=== PATIENT | female | born 1995 | race Caucasian/White ===

== ENCOUNTER 2017-06-06 12:23 | Emergency (ER) | payer OTHER ==
[~2017-06-06] VITALS: Ht 170.2 cm; Wt 80.7 kg
[~2017-06-06 12:23] MED LIST: SERT25TA PO; [UNRECOGNIZED DRUG - REMARK] PO
[2017-06-06] MEDS ORDERED: SODIUM CHLORIDE 0.9% 1,000 ML IV ONE (13:32)
[2017-06-06] MEDS ORDERED: SODIUM CHLORIDE FLUSH 10ML SYR IVF ONE (14:00)
[2017-06-06 14:11] LABS: ASPARTATE AMINO TRANSFERASE 12 U/L (15-37); BLOOD UREA NITROGEN 9 mg/dL (7-18)
[2017-06-06 15:51] VITALS: BP 105/67
[2017-06-06] MEDS ORDERED: PREN1TAB25 PO (17:37)
== END 2017-06-06 16:30 | disposition home or self-care (01) ==
LOC: ED 16:04
DX: O23.43 Unspecified infection of urinary tract in pregnancy, third trimester (principal); O26.893 Other specified pregnancy related conditions, third trimester; R42 Dizziness and giddiness; E86.0 Dehydration; Z3A.31 31 weeks gestation of pregnancy
CPT/HCPCS: 36415; 80053; 81001; 85025; 87086; 93005; 99285

== ENCOUNTER 2017-06-06 16:26 | Outpatient (CLI) | payer OTHER ==
[~2017-06-06] VITALS: Ht 170.2 cm; Wt 77.3 kg
[2017-06-06 17:20] VITALS: BP 97/56
[2017-06-06] MEDS ORDERED: PREN1TAB25 PO (17:37)
== END 2017-06-06 18:06 | disposition home or self-care (01) ==
LOC: LDOP 16:26
PROVIDERS: ATTEND Obstetrics & Gynecology
DX: O26.893 Other specified pregnancy related conditions, third trimester (principal); O62.9 Abnormality of forces of labor, unspecified; O47.03 False labor before 37 completed weeks of gestation, third trimester; R42 Dizziness and giddiness; R51 Headache; R10.2 Pelvic and perineal pain; R10.9 Unspecified abdominal pain; Z3A.30 30 weeks gestation of pregnancy
CPT/HCPCS: 59025; 99201; G0463

== ENCOUNTER 2017-08-06 10:34 | Outpatient (CLI) | payer OTHER ==
[~2017-08-06 10:34] MED LIST changes: +PREN1TAB25 PO
[2017-08-06 11:41] VITALS: BP 106/65
[2017-08-06 12:08] LABS: AMNISURE NEGATIVE (NEGATIVE)
[2017-08-06 12:09] LABS: AMNI OBC PASS
== END 2017-08-06 19:31 | disposition home or self-care (01) ==
LOC: LDOP 10:34
PROVIDERS: ATTEND Obstetrics & Gynecology
DX: O42.92 Full-term premature rupture of membranes, unspecified as to length of time between rupture and onset of labor (principal); O62.9 Abnormality of forces of labor, unspecified; Z3A.39 39 weeks gestation of pregnancy
CPT/HCPCS: 59025; 84112; 89060; 99211; G0463; Q0114

== ENCOUNTER 2017-08-07 21:04 | Outpatient (CLI) | payer OTHER | END 2017-08-07 23:35 | disposition home or self-care (01) | LOC: LDOP 21:04 | PROVIDERS: ATTEND Obstetrics & Gynecology | DX: O36.8130 Decreased fetal movements, third trimester, not applicable or unspecified (principal); O62.9 Abnormality of forces of labor, unspecified; Z3A.39 39 weeks gestation of pregnancy | CPT/HCPCS: 59025; 99211; G0463 ==

== ENCOUNTER 2017-08-10 05:03 | Inpatient (IN) | payer OTHER ==
[~2017-08-10] VITALS: Ht 170.2 cm; Wt 83.0 kg
[2017-08-10] MEDS ORDERED: LACTATED RINGERS 1,000 ML IV SCH ×2 (05:04→12:03)
[2017-08-10] MEDS ORDERED: OXYTOCIN 30U/ 0.9% NaCL 500ML 500 ML IV PRN (05:04)
[2017-08-10] MEDS ORDERED: OXYTOCIN 30U/ 0.9% NaCL 500ML 500 ML IV ONE (05:04)
[2017-08-10] MEDS ORDERED: D5%-LACTATED RINGERS 1,000 ML IV SCH (05:04)
[2017-08-10] MEDS ORDERED: TERBUTALINE 1 MG/ML, 1ML IVPush PRN (05:30)
[2017-08-10] MEDS ORDERED: FENTANYL PF 100 MCG/2ML IV PRN (05:30)
[2017-08-10] MEDS ORDERED: NEWBORN KIT ONE (05:37)
[2017-08-10] MEDS ORDERED: OXYTOCIN 30U/ 0.9% NaCL 500ML 500 ML ONE ×2 (05:37→14:39)
[2017-08-10 05:56] LABS: HEMATOCRIT 38.4 % (34.6-47.8); HEMOGLOBIN 13.1 g/dL (11.7-16.4); WHITE BLOOD COUNT 10.2 x10^3/uL (3.4-10)
[2017-08-10 06:02] VITALS: BP 111/74
[2017-08-10] MEDS ORDERED: FENTANYL PF 100 MCG/2ML ONE ×3 (07:10→09:09)
[2017-08-10] MEDS: FENTANYL PF 100 MCG/2ML IVPush PRN ×2 (07:13→08:35)
[2017-08-10 07:41] VITALS: BP 111/58
[2017-08-10] MEDS ORDERED: BUPIVACAINE 0.25% ONE (09:09)
[2017-08-10] MEDS ORDERED: FENTANYL/BUPIV./NS/PF 250 ML EPIDCONT ONE (09:10)
[2017-08-10] MEDS ORDERED: FENTANYL/BUPIV./NS/PF 250 ML EPIDCONT SCH (12:03)
[2017-08-10] MEDS ORDERED: LACTATED RINGERS 1,000 ML IVBOLUS PRN (12:30)
[2017-08-10] MEDS ORDERED: MISOPROSTOL 200 MCG TABLET PR PRN (16:00)
[2017-08-10] MEDS ORDERED: HYDROcodone/APAP 5/325 TABLET PO PRN ×2 (16:00)
[2017-08-10] MEDS ORDERED: ACETAMINOPHEN 325 MG TABLET PO PRN ×2 (16:00)
[2017-08-10] MEDS: OXYTOCIN 30U/ 0.9% NaCL 500ML 500 ML IV SCH (16:07)
[2017-08-10 17:50] VITALS: BP 101/54
[2017-08-10 20:30] VITALS: BP 107/66
[2017-08-11 00:46] LABS: HEMATOCRIT 34.3 % (34.6-47.8); HEMOGLOBIN 11.6 g/dL (11.7-16.4); WHITE BLOOD COUNT 13.8 x10^3/uL (3.4-10)
[2017-08-11] MEDS: OXYTOCIN 30U/ 0.9% NaCL 500ML 500 ML IV SCH ×2 (01:40→11:40)
[2017-08-11 01:50] VITALS: BP 105/65
[2017-08-11 04:15] VITALS: BP 105/67
[2017-08-11 08:00] VITALS: BP 96/56
[2017-08-11] MEDS: IBUPROFEN 600 MG TABLET PO PRN (08:49)
[2017-08-11] MEDS: DOCUSATE 100 MG CAPSULE PO PRN (08:49)
[2017-08-11] MEDS: PRENATAL VIT/IRON/FA 1 EACH TABLET PO SCH (08:49)
[2017-08-11 12:00] VITALS: BP 110/71
[2017-08-11 21:06] VITALS: BP 108/70
[2017-08-12] MEDS: IBUPROFEN 600 MG TABLET PO PRN (04:05)
[2017-08-12 08:10] VITALS: BP 115/72
[2017-08-12] MEDS: PRENATAL VIT/IRON/FA 1 EACH TABLET PO SCH (08:16)
[2017-08-12] MEDS: DOCUSATE 100 MG CAPSULE PO PRN (08:17)
[2017-08-12] MEDS ORDERED: LIDOCAINE/PF 1.5%-EPI 1:200K, 30ML ONE (09:13)
[2017-08-12] MEDS ORDERED: EPHEDRINE 50 MG/ML, 1ML ONE (09:13)
[2017-08-12] MEDS ORDERED: ONDANSETRON 2MG/ML, 2ML ONE (09:13)
[2017-08-12] MEDS ORDERED: IBUP-1222 PO (13:04)
[2017-08-12] MEDS ORDERED: HYDR-3240 PO (13:05)
== END 2017-08-12 14:20 | disposition home or self-care (01) | DRG 775 ==
LOC: LDIP 05:03 → 2NW 17:46
PROVIDERS: ADMIT Obstetrics & Gynecology; ATTEND Obstetrics & Gynecology
PROC: 10E0XZZ Delivery of Products of Conception, External Approach (ICD-10-PCS; principal; 2017-08-10)
PROC: 0HQ9XZZ Repair Perineum Skin, External Approach (ICD-10-PCS; 2017-08-10)
PROC: 3E033VJ Introduction of Other Hormone into Peripheral Vein, Percutaneous Approach (ICD-10-PCS; 2017-08-10)
PROC: 3E0S3CZ (ICD-10-PCS; 2017-08-10)
PROC: 00HU33Z Insertion of Infusion Device into Spinal Canal, Percutaneous Approach (ICD-10-PCS; 2017-08-10)
DX: O69.81X0 Labor and delivery complicated by cord around neck, without compression, not applicable or unspecified (principal); O70.0 First degree perineal laceration during delivery; Z37.0 Single live birth; Z3A.40 40 weeks gestation of pregnancy; Z88.1 Allergy status to other antibiotic agents; Z91.040 Latex allergy status; Z91.010 Allergy to peanuts
CPT/HCPCS: 36415; 85025; 86850; 86900; J2405; J3010; J3490; J2590; J7120

== ENCOUNTER 2017-11-21 10:02 | Emergency (ER) | payer OTHER ==
[~2017-11-21] VITALS: Ht 170.2 cm; Wt 72.1 kg
[~2017-11-21 10:02] MED LIST changes: +HYDR-3240 PO; +IBUP-1222 PO
[2017-11-21 10:05] VITALS: BP 117/72
[2017-11-21 11:52] LABS: MICROSCOPIC AUTO
[2017-11-21 11:53] LABS: CULTURE INDICATED? YES
[2017-11-21] MEDS ORDERED: ONDANSETRON ODT 4 MG PO ONE (12:30)
[2017-11-21 12:56] LABS: BASOPHILS # (AUTO) 0.02 x10^3/uL (0-0.1); BASOPHILS % (AUTO) 0 % (0-1); EOSINOPHILS # (AUTO) 0.04 x10^3/uL (0-0.4); EOSINOPHILS % (AUTO) 1 % (1-7); LYMPHOCYTES # (AUTO) 1.54 x10^3/uL (1-3.4); LYMPHOCYTES % (AUTO) 20 % (22-44); MD NO; MEAN CORPUSCULAR HEMOGLOBIN 29.5 pg (27.0-34.8); MEAN CORPUSCULAR HGB CONC 34.1 g/dL (32.4-35.8); MEAN CORPUSCULAR VOLUME 86.7 fL (80-100); MEAN PLATELET VOLUME 7.8 fL (7.4-10.4); MONOCYTES # (AUTO) 0.54 x10^3/uL (0.2-0.8); MONOCYTES % (AUTO) 7 % (2-9); NEUTROPHILS # (AUTO) 5.46 x10^3/uL (1.8-6.8); NEUTROPHILS % (AUTO) 72 % (42-75); PLATELET COUNT 271 x10^3/uL (130-400); RED BLOOD COUNT 5.04 x10^6/uL (3.82-5.3); RED CELL DISTRIBUTION WIDTH 14.3 % (9.6-15.2)
[2017-11-21] MEDS ORDERED: ONDANSETRON ODT 4 MG ONE (13:00)
[2017-11-21 13:35] LABS: RAPID INFLUENZA A Negative (Negative); RAPID INFLUENZA B Negative (Negative)
== END 2017-11-21 14:20 | disposition home or self-care (01) ==
LOC: ED 14:00
DX: K64.8 Other hemorrhoids (principal)
CPT/HCPCS: 36415; 81001; 84703; 85025; 87086; 87400; 99285; Q0162

== ENCOUNTER 2021-05-05 12:26 | Emergency (ER) | payer BC, OTHER ==
[~2021-05-05] VITALS: Ht 170.2 cm; Wt 85.0 kg
[~2021-05-05 12:26] MED LIST changes: +HYDR-2214 PO; -HYDR-3240 PO
[2021-05-05 13:12] LABS: BASOPHILS % (AUTO) 0 % (0-1); EOSINOPHILS % (AUTO) 1 % (1-7); LYMPHOCYTES % (AUTO) 17 % (22-44); MEAN CORPUSCULAR HEMOGLOBIN 31.2 pg (27.0-34.8); MEAN CORPUSCULAR HGB CONC 34.6 g/dL (32.4-35.8); MEAN PLATELET VOLUME 7.7 fL (7.4-10.4); MONOCYTES % (AUTO) 4 % (2-9); NEUTROPHILS % (AUTO) 78 % (42-75); PLATELET COUNT 301 x10^3/uL (130-400); RED BLOOD COUNT 4.42 x10^6/uL (3.82-5.3); RED CELL DISTRIBUTION WIDTH 13.5 % (9.6-15.2)
[2021-05-05 13:23] LABS: ALBUMIN 2.9 g/dL (3.4-5.0); CHLORIDE 109 mmol/L (98-107)
[2021-05-05 13:31] LABS: ALANINE AMINOTRANSFERASE 27 U/L (12-78); ALKALINE PHOSPHATASE 54 U/L (45-117); ANION GAP 9 mmol/L (5-15); BILIRUBIN,TOTAL 0.4 mg/dL (0.2-1.0); CREATININE 0.54 mg/dL (0.55-1.02); TOTAL PROTEIN 7.3 g/dL (6.4-8.2)
[2021-05-05 13:48] LABS: MICROSCOPIC INDICATED
--- NOTE | 2021-05-05 15:44 | NUR ---
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
--- NOTE | 2021-05-05 16:10 | NUR ---
PT C/O DIZZINESS SINCE TUESDAY AND FEELING LIKE SHE WAS GOING TO FAINT THIS AM ALMOST DID ON THE WAY TO THE RESTROOM CAUGHT HER SELF. PT STATES HAS HAD SLIGHT ABD PAIN HAS BEEN SINCE TUESDAY COMES AND GOES BUT MOSTLY WHEN SHE MOVES. DENIES VAGINAL BLEEDING. PT STATES HAS HAD A SEVERE PETERS SINCE TUESDAY.
--- NOTE | 2021-05-05 17:00 | NUR ---
UOB TO BATHROOM WITH ASSISTANCE OF FRIEND TO GIVE SECOND URINE SAMPLE
[2021-05-05] MEDS ORDERED: ACETAMINOPHEN 500 MG TABLET PO ONE (17:30)
[2021-05-05] MEDS ORDERED: METOCLOPRAMIDE 5 MG/ML, 2ML IVPush ONE (17:30)
[2021-05-05] MEDS ORDERED: SODIUM CHLORIDE 0.9% 1,000ML IVBOLUS ONE ×2 (17:30→20:30)
[2021-05-05] MEDS ORDERED: METOCLOPRAMIDE 5 MG/ML, 2ML ONE (17:39)
[2021-05-05] MEDS ORDERED: ACETAMINOPHEN 500 MG TABLET ONE (17:40)
--- NOTE | 2021-05-05 17:46 | NUR ---
PT MEDICATED FOR PETERS AND NAUSEA WITH FLUID BOLUS INFUSING.
[2021-05-05 18:30] LABS: MICROSCOPIC NOT IND
--- NOTE | 2021-05-05 18:36 | NUR ---
PT STATE FEELS EXHAUSTED MORE THAND BEFORE AND BP IS TRENDING LOWER.
--- NOTE | 2021-05-05 19:09 | NUR ---
REPORT GIVEN TO PATTIE CORCORAN TO ASSUME CARE.
--- NOTE | 2021-05-05 19:10 | NUR ---
RECEIVED BS REPORT FROM JEWELL GRIFFITH TO ASSUME CARE OF PT. AT THIS TIME. PT. RESTING ON GURNEY WITH NO DISTRESS NOTED. REPORTS PETERS IS MUCH BETTER THAN IT HAS BEEN OVER THE LAST FEW DAYS. FAMILY AT BS FOR SUPPORT. PT. DENIES NEEDS AT THIS TIME. ALL SAFETY MEASURES OBSERVED.
--- NOTE | 2021-05-05 19:37 | NUR ---
FLUIDS COMPLETED. PT. AMBULATORY DOWN ESTRADA TO BR WITH FAMILY.
--- NOTE | 2021-05-05 19:52 | NUR ---
PT. REPORTS SOMEWHAT LIGHT-HEADED WHEN GETTING UP TO AMBULATE TO BR. PT. STATES THAT SHE DOES FEEL MUCH BETTER THAN SHE DID BEFORE THOUGH. WILL UPDATE MD.
[2021-05-05] MEDS ORDERED: KETOROLAC 30 MG/1 ML ONE (20:19)
[2021-05-05] MEDS ORDERED: KETOROLAC 30 MG/1 ML IVPush ONE (20:30)
--- NOTE | 2021-05-05 21:23 | NUR ---
PT. REPORTS FEELING MUCH BETTER; PETERS DOWN TO 2/[address] BRISENO BACK IN TO DISCUSS PLAN FOR D/C HOME. PT. AGREES WITH POC.
[2021-05-05 21:35] VITALS: BP 99/58
== END 2021-05-05 21:42 | disposition home or self-care (01) ==
LOC: ED 17:00
DX: O26.892 Other specified pregnancy related conditions, second trimester (principal); E86.0 Dehydration; R55 Syncope and collapse; R51.9 Headache, unspecified; Z3A.16 16 weeks gestation of pregnancy
CPT/HCPCS: 36415; 76815; 80053; 81001; 81003; 85025; 87086; 93005; 96361; 96374; 96375; 99285; J1885; J2765; J7030